=== PATIENT | male | born 1970 | race Caucasian/White ===

== ENCOUNTER 2019-05-03 17:04 | Inpatient (IN) ==
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
[2019-05-03 18:40] LABS: Prothrombin Time 10.5 Seconds (9.0-12.0)
--- NOTE | 2019-05-03 19:21 | Ultrasound Report ---
US venous doppler LE RT CLINICAL HISTORY: Right lower leg pain and swelling status post surgery COMPARISON STUDY: No previous studies for comparison. FINDINGS: Grayscale color flow and spectral waveform analysis was performed. No thrombus is visualized within the common femoral vein. There is occlusive thrombus within the superficial femoral vein from the midportion of the vein exten ding through the popliteal vein. There is broken flow with the posterior tibial and peroneal veins suggesting areas of thrombus within these vessels. IMPRESSION: 1. Acute occlusive right lower extremity DVT extending from the mid femoral vein through the poplitea l vein. Electronically signed by: Andriy Quiñonez M.D. 05/03/2019 7:20 PM
[2019-05-03 20:03] LABS: Basophils # (auto) 0.04 K/uL (0-0.2); Basophils % (auto) 0.6 %; Eosinophils % (auto) 1.6 %; Hematocrit (blood only) 45.4 % (42-52); Hemoglobin 15.5 g/dL (14.0-18.0); Immature Granulocytes # (auto) 0.01 K/uL (0.00-0.02); Immature Granulocytes % (auto) 0.2 %; Lymphocytes # (auto) 2.04 K/uL (1.2-3.4); Lymphocytes % (auto) 31.8 %; Mean Corpuscular Hgb Conc 34.1 g/dL (32-36); Mean Corpuscular Volume 79.1 fL (80-100); Mean Platelet Volume 10.2 fL (7.4-10.4); Monocytes # (auto) 0.48 K/uL (0.11-0.59); Monocytes % (auto) 7.5 %; Neutrophils # (auto) 3.75 K/uL (1.4-6.5); Neutrophils % (auto) 58.3 %; Platelet Count 266 K/uL (130-400); RDW Coefficient of Variation 13.7 % (11.5-14.5); RDW Standard Deviation 39.4 fL (36.4-46.3); Red Blood Count 5.74 M/uL (4.7-6.1); White Blood Count 6.42 K/uL (4.8-10.8)
[2019-05-03 20:20] LABS: BUN Creatinine Ratio 18.9 (10-20); Calcium 9.5 mg/dl (8.5-10.1); Creatinine Clr Calc Pharmacy 131.7 ml/min; Est GFR (African American) 123.3; Est GFR (Non-African American) 106.4
[2019-05-03 20:23] LABS: Bilirubin,Total 0.3 mg/dl (0.2-1); Globulin 3.9 gm/dl (2.5-4.0); Phosphorus 4.1 mg/dl (2.5-4.9); Total Protein 7.9 gm/dl (6.4-8.2)
[2019-05-03] MEDS ORDERED: ENOXAPARIN 100 MG/1ML SYR SQ ONE (22:02)
[2019-05-03] MEDS ORDERED: ACETAMINOPHEN 325 MG TAB PO PRN (22:34)
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
[2019-05-03] MEDS ORDERED: PREGABALIN 100 MG CAP PO ONE (23:05)
[2019-05-03] MEDS ORDERED: INSULIN ASPART 100 UNITS/ML 3 ML PEN SC ONE (23:09)
[2019-05-03] MEDS ORDERED: CARBOHYDRATES FOR HYPOGLYCEMIA PO PRN (23:15)
[2019-05-03] MEDS ORDERED: DEXTROSE 50% 50 ML SYRINGE IV PRN (23:15)
[2019-05-03] MEDS ORDERED: GLUCOSE 40% GEL 15 GM TUBE PO PRN (23:15)
[2019-05-03] MEDS ORDERED: GLUCAGON FOR INJ 1 MG VIAL SQ PRN (23:15)
[2019-05-03] MEDS ORDERED: GLUCOSE 10 TABS/TUBE PO PRN (23:15)
[2019-05-04 06:55] LABS: Estimated Average Glucose 177 mg/dl; Hemoglobin A1C 7.8 % (4.5-5.6)
--- NOTE | 2019-05-04 07:16 | Ultrasound Report ---
US venous doppler LE LT CLINICAL HISTORY: 48 years-old Male presenting with left calf pain. TECHNIQUE: Real-time grayscale and color and spectral Doppler ultrasound imaging of the veins of the left lower extremity was performed. Compression and augmentation were also utilized. COMPARISON: 08/04/2013. FINDINGS: LEFT: Common femoral vein: Patent. Greater saphenous vein (superficial): Patent. Deep femoral vein: Patent. Femoral vein: Patent. Popliteal vein: Patent. Calf veins: Patent. Other: Anechoic collection in the popliteal fossa measuring 3.9 x 0.8 x 1.8 cm, likely popliteal cyst . IMPRESSION: No evidence of deep venous thrombosis. Electronically signed by: Aldo Purcell M.D. 05/04/2019 7:15 AM
[2019-05-04] MEDS: LISINOPRIL 20 MG TAB PO SCH (07:56)
[2019-05-04] MEDS: glipiZIDE 5 MG TAB PO SCH ×2 (07:56→12:27)
[2019-05-04] MEDS: INSULIN GLARGINE SOLOSTAR 100 UNITS/ML 3 ML PEN SQ SCH (07:57)
[2019-05-04] MEDS: INSULIN ASPART 100 UNITS/ML 3 ML PEN SC SCH ×3 (08:02→17:54)
[2019-05-04] MEDS: PREGABALIN 100 MG CAP PO SCH ×3 (08:02→21:22)
[2019-05-04] MEDS ORDERED: CLOBETASOL PROPIONATE 0.05% OINT 15 GM TUBE EXT SCH (09:00)
[2019-05-04] MEDS ORDERED: ENOXAPARIN 1 MG/KG SQ SCH (10:00)
[2019-05-04] MEDS ORDERED: ENOXAPARIN INJ 120 MG/0.8 ML SYR SQ SCH (10:00)
[2019-05-04] MEDS ORDERED: Nursing to Pharmacy Communication ONE (10:02)
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
[2019-05-04] MEDS ORDERED: METFORMIN HCL ER 500 MG TABCR PO SCH (16:30)
[2019-05-04] MEDS: APIXABAN 5 MG TABLET PO SCH (18:06)
[2019-05-04] MEDS ORDERED: SODIUM CHLORIDE 0.9% 1000ML 1,000 ML IV SCH (18:30)
[2019-05-04] MEDS ORDERED: OPTIRAY 320 125ml IV PRN (19:25)
--- NOTE | 2019-05-04 19:43 | CT Scan Report ---
CT angio chest PE protocol CT DOSE: 513.12 mGycm HISTORY: Chest pain tachy, +DVT TECHNIQUE: Multiaxial CT images of the chest were performed following the intravenous administration of contrast to evaluate the pulmonary arteries. Maximal intensity projection images were also obtaine d. A dose lowering technique was utilized adhering to the principles of ALARA. COMPARISON STUDY: None. FINDINGS: Thoracic aorta is normal in course and caliber. Small filling defect within a second order left lower lobe pulmonary artery. Possible small additiona l third order filling defect left lower lobe. No evidence for main or central pulmonary embolus. No evidence for right heart strain. The lungs are considered clear. IMPRESSION: 1. Study is positive for one and possibly 2 small second order pulmonary emboli of the left lower lob e. 2. No evidence for main or central pulmonary embolus. 3. The lungs are clear. The above report was generated using voice recognition software. It may contain grammatical, syntax or spelling errors. Electronically signed by: Evan Goins M.D. 05/04/2019 7:41 PM
[2019-05-04] MEDS: CLOBETASOL PROPIONATE 0.05% OINT 15 GM TUBE EXT SCH (20:06)
[2019-05-04] MEDS: ROSUVASTATIN CALCIUM 10 MG TAB PO SCH (20:07)
[2019-05-05] MEDS: APIXABAN 5 MG TABLET PO SCH ×2 (05:57→17:29)
[2019-05-05 07:26] LABS: Hemoglobin 14.3 g/dL (14.0-18.0); Mean Corpuscular Hemoglobin 26.5 pg (25-34); Mean Corpuscular Hgb Conc 33.3 g/dL (32-36); Mean Corpuscular Volume 79.8 fL (80-100); Mean Platelet Volume 9.7 fL (7.4-10.4); Platelet Count 235 K/uL (130-400); RDW Standard Deviation 40.5 fL (36.4-46.3); Red Blood Count 5.39 M/uL (4.7-6.1); White Blood Count 5.51 K/uL (4.8-10.8)
[2019-05-05] MEDS: LISINOPRIL 20 MG TAB PO SCH (07:26)
[2019-05-05] MEDS: glipiZIDE 5 MG TAB PO SCH ×2 (07:27→11:43)
[2019-05-05] MEDS: CLOBETASOL PROPIONATE 0.05% OINT 15 GM TUBE EXT SCH ×2 (07:28→19:58)
[2019-05-05] MEDS: PREGABALIN 100 MG CAP PO SCH ×3 (07:32→20:00)
[2019-05-05] MEDS: INSULIN GLARGINE SOLOSTAR 100 UNITS/ML 3 ML PEN SQ SCH (07:33)
[2019-05-05 07:54] LABS: BUN Creatinine Ratio 15.4 (10-20); Creatinine Clr Calc Pharmacy 146.2 ml/min; Est GFR (African American) 129.9; Potassium 3.8 mmol/L (3.5-5.1)
[2019-05-05] MEDS ORDERED: ACETAMINOPHEN 325 MG TAB PO PRN (09:09)
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
[2019-05-05] MEDS ORDERED: FUROSEMIDE 20 MG in SYRINGE 0 ML IV ONE (13:30)
[2019-05-05] MEDS: ROSUVASTATIN CALCIUM 10 MG TAB PO SCH (19:57)
[2019-05-06] MEDS: APIXABAN 5 MG TABLET PO SCH (06:03)
[2019-05-06 06:57] LABS: Basophils # (auto) 0.05 K/uL (0-0.2); Basophils % (auto) 0.9 %; Eosinophils # (auto) 0.07 K/uL (0-0.5); Eosinophils % (auto) 1.2 %; Hematocrit (blood only) 44.1 % (42-52); Hemoglobin 14.7 g/dL (14.0-18.0); Immature Granulocytes # (auto) 0.01 K/uL (0.00-0.02); Immature Granulocytes % (auto) 0.2 %; Lymphocytes # (auto) 1.88 K/uL (1.2-3.4); Lymphocytes % (auto) 32.5 %; Mean Corpuscular Hemoglobin 26.6 pg (25-34); Mean Corpuscular Hgb Conc 33.3 g/dL (32-36); Mean Corpuscular Volume 79.7 fL (80-100); Monocytes # (auto) 0.47 K/uL (0.11-0.59); Monocytes % (auto) 8.1 %; Neutrophils # (auto) 3.31 K/uL (1.4-6.5); Neutrophils % (auto) 57.1 %; Platelet Count 237 K/uL (130-400); RDW Coefficient of Variation 13.9 % (11.5-14.5); RDW Standard Deviation 40.1 fL (36.4-46.3); Red Blood Count 5.53 M/uL (4.7-6.1); White Blood Count 5.79 K/uL (4.8-10.8)
[2019-05-06] MEDS: CLOBETASOL PROPIONATE 0.05% OINT 15 GM TUBE EXT SCH (08:10)
[2019-05-06] MEDS: LISINOPRIL 20 MG TAB PO SCH (08:10)
[2019-05-06] MEDS: INSULIN GLARGINE SOLOSTAR 100 UNITS/ML 3 ML PEN SQ SCH (08:11)
[2019-05-06] MEDS: glipiZIDE 5 MG TAB PO SCH ×2 (08:11→12:04)
[2019-05-06] MEDS: PREGABALIN 100 MG CAP PO SCH ×2 (08:15→13:27)
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
== END 2019-05-06 13:56 | disposition home or self-care (01) | DRG 299 ==
LOC: ED 17:04 → SUATTDRO 20:47 → 2N 20:47

== ENCOUNTER 2020-09-04 14:56 | Inpatient (IN) ==
[2020-09-04] MEDS ORDERED: SODIUM CHLORIDE 0.9% 1000ML 2,000 ML IV ONE (15:09)
[2020-09-04] MEDS ORDERED: ACETAMINOPHEN 1,000 MG/100 ML VIAL IV STA (15:09)
[2020-09-04] MEDS ORDERED: FAMOTIDINE 20MG IV PUSH 20 MG/5 ML SYR IV STA (15:09)
[2020-09-04] MEDS ORDERED: diphenhydrAMINE 50 MG/ML VIAL IV STA (15:09)
[2020-09-04] MEDS ORDERED: PROCHLORPERAZINE 2 ML IV ONE (15:09)
[2020-09-04 15:31] LABS: Hematocrit (blood only) 52.6 % (42-52); Hemoglobin 18.3 g/dL (14.0-18.0); Mean Corpuscular Hemoglobin 29.5 pg (25-34); Mean Corpuscular Hgb Conc 34.8 g/dL (32-36); Mean Corpuscular Volume 84.7 fL (80-100); Mean Platelet Volume 10.5 fL (7.4-10.4); Platelet Count 276 K/uL (130-400); RDW Coefficient of Variation 13.1 % (11.5-14.5); RDW Standard Deviation 40.3 fL (36.4-46.3); Red Blood Count 6.21 M/uL (4.7-6.1); White Blood Count 7.83 K/uL (4.8-10.8)
[2020-09-04 15:46] LABS: Partial Thromboplastin Time 29.1 Seconds (21.0-31.0)
[2020-09-04 15:51] LABS: Alanine Aminotransferase 50 U/L (12-78); Albumin Level 3.9 gm/dl (3.4-5.0); Aspartate Aminotransferase 19 U/L (15-37); Bilirubin Direct 0.2 mg/dl (0-0.2); Blood Urea Nitrogen 18 mg/dl (7-18); Calcium 9.7 mg/dl (8.5-10.1); Carbon Dioxide 14 mmol/L (21-32); Chloride 98 mmol/L (98-107); Est GFR (African American) 85.2; Est GFR (Non-African American) 73.5; Glucose 299 mg/dl (70-99); Lipase 84 U/L (73-393); Magnesium 2.2 mg/dl (1.8-2.4); Sodium 133 mmol/L (136-145)
[2020-09-04 15:54] LABS: Albumin Globulin Ratio 0.8 (0.9-2); Alkaline Phosphatase 90 U/L (45-117); Globulin 5.1 gm/dl (2.5-4.0); Phosphorus 4.5 mg/dl (2.5-4.9); Troponin I < 0.015 ng/ml (0-0.045)
--- NOTE | 2020-09-04 16:08 | XRay Report ---
XR chest 1V portable HISTORY: Atypical Chest Pain COMPARISON: Chest 01/22/2019. FINDINGS: The lungs are clear. Cardiac silhouette is normal in size. No pleural effusions. No pneumot horax. IMPRESSION: No acute process. ACT 112: Negative or not required by law. Electronically signed by: Vin Stone M.D. 09/04/2020 4:07 PM
[2020-09-04 16:30] LABS: Basophils # (auto) 0.01 K/uL (0-0.2); Basophils % (auto) 0.1 %; Immature Granulocytes # (auto) 0.02 K/uL (0.00-0.02); Immature Granulocytes % (auto) 0.3 %; Lymphocytes % (auto) 11.5 %; Monocytes # (auto) 0.49 K/uL (0.11-0.59); Monocytes % (auto) 6.3 %; Neutrophils # (auto) 6.41 K/uL (1.4-6.5); Neutrophils % (auto) 81.8 %
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
[2020-09-04 18:23] LABS: Base Excess VBG -9.8 mEq/L; Oxygen Saturation VBG 68.8 %; pH VBG 7.28 (7.36-7.41)
--- NOTE | 2020-09-04 18:43 | Electrocardiogram Report ---
Test Reason : Blood Pressure : / mmHG Vent. Rate : 122 BPM Atrial Rate : 122 BPM P-R Int : 130 ms QRS Dur : 090 ms QT Int : 330 ms P-R-T Axes : 052 076 024 degrees QTc Int : 470 ms Poor data quality, interpretation may be adversely affected Sinus tachycardia Cannot rule out Inferior infarct , age undetermined Abnormal ECG When compared with ECG of 06-MAY-2019 07:54, No significant change was found Confirmed by Itz Gutierrez ([id number]) on 09/04/2020 6:43:17 PM Referred By: Confirmed By:Itz Gutierrez
[2020-09-04] MEDS ORDERED: PENDING 1/2NSS+20mEq KCL IVF SCH (19:00)
[2020-09-04] MEDS ORDERED: INSULIN GLARGINE SOLOSTAR 100 UNITS/ML 3 ML PEN SC STA (19:16)
[2020-09-04 19:30] LABS: BUN Creatinine Ratio 18.6 (10-20); Blood Urea Nitrogen 17 mg/dl (7-18); Calcium 8.7 mg/dl (8.5-10.1); Carbon Dioxide 16 mmol/L (21-32); Chloride 104 mmol/L (98-107); Est GFR (African American) 113.4; Est GFR (Non-African American) 97.9; Glucose 204 mg/dl (70-99); Sodium 137 mmol/L (136-145)
[2020-09-04] MEDS ORDERED: SODIUM CHLOR 0.45% + 20MEQ KCL 20 MEQ/1,000 ML BAG IV SCH (19:30)
[2020-09-04] MEDS ORDERED: LACTATED RINGER'S 1,000 ML IV ONE (19:33)
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
[2020-09-04] MEDS ORDERED: INSULIN ASPART 100 UNITS/ML 3 ML PEN SC SCH (21:25)
[2020-09-04] MEDS ORDERED: GLUCAGON FOR INJ 1 MG VIAL SQ PRN (21:25)
[2020-09-04] MEDS ORDERED: CARBOHYDRATES FOR HYPOGLYCEMIA PO PRN (21:25)
[2020-09-04] MEDS ORDERED: GLUCOSE 40% GEL 15 GM TUBE PO PRN (21:25)
[2020-09-04] MEDS ORDERED: traMADol HCL 50 MG TABLET PO PRN (21:25)
[2020-09-04] MEDS ORDERED: GLUCOSE 10 TABS/TUBE PO PRN (21:25)
[2020-09-04] MEDS ORDERED: DEXTROSE 50% 50 ML SYRINGE IV PRN (21:25)
[2020-09-04] MEDS ORDERED: PROMETHAZINE HCL 12.5 MG in SODIUM CHLORIDE 0.9% 50 ML IV PRN (21:25)
[2020-09-04] MEDS ORDERED: LORazepam 0.5 MG/1 ML VIAL IV PRN (21:25)
[2020-09-04] MEDS: ROSUVASTATIN CALCIUM 10 MG TAB PO SCH (22:06)
[2020-09-04] MEDS: LACTATED RINGER'S 1,000 ML IV SCH (22:29)
[2020-09-04] MEDS: PREGABALIN 150 MG CAP PO SCH (22:29)
[2020-09-04 22:59] LABS: Appearance Urine Clear (Clear); Bacteria Urine Automated Negative (Negative); Bilirubin Urine Negative (Negative); Blood Urine Negative (Negative); Color Urine Yellow; Epithelial Cell Urine Auto 0-5 /lpf (0-5); Glucose Urine UA 3+ (Negative); Ketones Urine 4+ (Negative); Leukocyte Esterase Urine Negative (Negative); Nitrite Urine Negative (Negative); Protein Urine Trace (Negative); RBC Urine Automated 0-4 /hpf (0-4); Specific Gravity Urine 1.041 (1.000-1.030); Urobilinogen Urine Negative (Negative); WBC Urine Automated 0 /hpf (0-5)
[2020-09-05] MEDS: LACTATED RINGER'S 1,000 ML IV SCH ×4 (00:45→20:59)
[2020-09-05 00:50] LABS: Calcium 8.3 mg/dl (8.5-10.1); Creatinine Clr Calc Pharmacy 112.8 ml/min; Est GFR (African American) 116.7; Est GFR (Non-African American) 100.7; Potassium 3.7 mmol/L (3.5-5.1)
[2020-09-05] MEDS: ACETAMINOPHEN 325 MG TAB PO PRN ×3 (00:50→23:31)
[2020-09-05 00:54] LABS: Base Excess VBG -5.5 mEq/L; HCO3 VBG 20 mmol/L; PCO2 VBG 38 mmHg (38-50); PO2 VBG 27 mmHg; pH VBG 7.34 (7.36-7.41)
[2020-09-05 01:10] LABS: Oxygen Saturation VBG < 60.0 %
[2020-09-05] MEDS ORDERED: POTASSIUM CHLORIDE CRTAB 20 MEQ TABCR PO STA (02:30)
[2020-09-05] MEDS: INSULIN ASPART 100 UNITS/ML 3 ML PEN SC SCH ×5 (02:54→21:08)
[2020-09-05 06:36] LABS: Estimated Average Glucose 312 mg/dl; Hemoglobin A1C 12.5 % (4.5-5.6)
[2020-09-05] MEDS ORDERED: LACTATED RINGER'S 1,000 ML IV SCH (07:00)
[2020-09-05 07:50] LABS: BUN Creatinine Ratio 14.9 (10-20); Calcium 8.3 mg/dl (8.5-10.1); Creatinine Clr Calc Pharmacy 133.5 ml/min; Est GFR (Non-African American) 107.9; Potassium 3.5 mmol/L (3.5-5.1)
[2020-09-05] MEDS ORDERED: LACTATED RINGER'S 1,000 ML IV ONE (08:03)
[2020-09-05 08:07] LABS: Basophils # (auto) 0.01 K/uL (0-0.2); Basophils % (auto) 0.2 %; Hematocrit (blood only) 41.6 % (42-52); Hemoglobin 14.2 g/dL (14.0-18.0); Lymphocytes # (auto) 0.76 K/uL (1.2-3.4); Lymphocytes % (auto) 18.1 %; Mean Corpuscular Hemoglobin 28.7 pg (25-34); Mean Corpuscular Hgb Conc 34.1 g/dL (32-36); Mean Platelet Volume 9.7 fL (7.4-10.4); Monocytes % (auto) 11.9 %; Neutrophils # (auto) 2.92 K/uL (1.4-6.5); Neutrophils % (auto) 69.8 %; Platelet Count 171 K/uL (130-400); RDW Standard Deviation 39.3 fL (36.4-46.3); Red Blood Count 4.95 M/uL (4.7-6.1); White Blood Count 4.19 K/uL (4.8-10.8)
[2020-09-05] MEDS: DULoxetine HCL 60 MG CAP PO SCH (08:16)
[2020-09-05] MEDS: lisinopril 20 MG TAB PO SCH (08:16)
[2020-09-05] MEDS: ENOXAPARIN INJ 40 MG/0.4 ML SYR SQ SCH (08:16)
[2020-09-05] MEDS: PREGABALIN 150 MG CAP PO SCH ×3 (08:19→21:06)
[2020-09-05] MEDS ORDERED: INSULIN GLARGINE SOLOSTAR 100 UNITS/ML 3 ML PEN SC SCH (09:00)
--- NOTE | 2020-09-05 13:14 | Hospitalist Progress Note ---
Date of Service September 05, 2020 Assessment & Plan (1) DKA (diabetic ketoacidoses): Gastroenteritis secondary to COVID-19 illness SIRS on admission Patient doing okay. However did have 3 loose bowel movements. Hyperglycemia is better. Will advance to carb diet. Treat with supportive management with recent diagnosis of COVID-19. Patient is on room air. White count is within normal limit. Continue with maintenance IV fluids. Continue with CREAM HAULER Lantus and sliding scale. C. difficile is pending. History of hypertension -Was hypertensive overnight but doing okay this morning Treating with lisinopril 20 mg daily History of hyperlipidemia Continue with CREAM HAULER Lipitor. History of PE/DVT Text document was generated using [employer] voice recognition software. It may contain grammatical or spelling errors. Kindly contact undersigned for clarification of any documentation item in question. Admission and Anticipated Discharge Date Admission Date: September 04, 2020 Subjective Patient is feeling okay this morning. Does have some weakness. He did have 3 loose bowel movements overnight. Denies any fever chills or diaphoresis. Does have some cough. Denies any chest pain or shortness of breath. Denies any abdominal pain or dysuria. Review of Systems Review of Systems: All systems reviewed & are unremarkable except as noted in HPI & below Physical Exam Physical Exam: General: A&Ox3 HENT: NCAT, MMM, EOMI Eyes: PERRLA Neck: Supple, normal range of motion CVS: normal rate and rhythm Resp: b/l good breath sounds Abdomen: Soft, ND/NT, +BS Extremities: Absence of any edema Neuro:no focal deficit Skin: warm and dry MSK: normal ROM, no joint swelling/erythema Results & Data Results & Data ([facility]) Vital Signs (Past 12 Hours) Vital Signs Temp Pulse Resp BP BP Pulse Ox 09/05/20 12:00 36.7 C 105 H 154/85 H 95 09/05/20 08:13 37.1 C 102 H 138/83 94 09/05/20 04:06 37.1 C 104 H 12 133/71 97 (1) DKA (diabetic ketoacidoses) Diabetes mellitus complication detail: without coma Diabetes mellitus type: type 2 Qualified Code(s): E11.10 - Type 2 diabetes mellitus with ketoacidosis without coma
[2020-09-05] MEDS: ROSUVASTATIN CALCIUM 10 MG TAB PO SCH (20:59)
[2020-09-05] MEDS: INSULIN GLARGINE SOLOSTAR 100 UNITS/ML 3 ML PEN SC SCH (21:09)
[2020-09-06] MEDS: PREGABALIN 150 MG CAP PO SCH ×2 (07:57→14:32)
[2020-09-06] MEDS: ACETAMINOPHEN 325 MG TAB PO PRN (07:58)
[2020-09-06] MEDS: lisinopril 20 MG TAB PO SCH (07:59)
[2020-09-06] MEDS: ENOXAPARIN INJ 40 MG/0.4 ML SYR SQ SCH (08:00)
[2020-09-06] MEDS: DULoxetine HCL 60 MG CAP PO SCH (08:00)
[2020-09-06] MEDS: INSULIN GLARGINE SOLOSTAR 100 UNITS/ML 3 ML PEN SC SCH (08:56)
[2020-09-06] MEDS: INSULIN ASPART 100 UNITS/ML 3 ML PEN SC SCH ×2 (08:57→12:56)
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
== END 2020-09-06 17:00 | disposition home or self-care (01) | DRG 637 ==
LOC: ED 14:56 → SUATTDRO 20:00 → 2W 20:00